=== PATIENT | male | born 1980 | race Caucasian/White ===

== ENCOUNTER 2021-05-31 08:32 | Outpatient (CLI) | payer BC, SELFPAY ==
[2021-05-31 21:09] LABS: Hemoglobin A1C 6.9 % (<5.7)
== END 2021-05-31 08:33 | disposition home or self-care (01) ==
LOC: ANHBWCLAB 08:33
PROVIDERS: PCP Family Medicine; Visit Provider Family Medicine
DX: E11.9 Type 2 diabetes mellitus without complications (principal)
CPT/HCPCS: 36415; 83036

== ENCOUNTER 2022-02-02 07:33 | Outpatient (CLI) | payer BC, SELFPAY ==
[2022-02-02 19:35] LABS: Creatinine Urine 262.1 mg/dL
[2022-02-02 19:40] LABS: MALB Creatinine Ratio 9.9 mg/g (0-30)
[2022-02-02 20:24] LABS: Hemoglobin A1C 5.7 % (<5.7)
== END 2022-02-02 07:34 | disposition home or self-care (01) ==
PROVIDERS: PCP Family Medicine; Visit Provider Family Medicine
DX: E11.9 Type 2 diabetes mellitus without complications (principal)
CPT/HCPCS: 36415; 82043; 83036

== ENCOUNTER 2022-07-12 08:12 | Outpatient (CLI) | payer OTHER, SELFPAY ==
[2022-07-12 19:37] LABS: Hemoglobin A1C 6.6 % (<5.7)
== END 2022-07-12 08:13 | disposition home or self-care (01) ==
PROVIDERS: PCP Family Medicine; Visit Provider Family Medicine
DX: E11.9 Type 2 diabetes mellitus without complications (principal)
CPT/HCPCS: 36415; 83036

== ENCOUNTER 2023-07-24 16:06 | Emergency (ER) | payer OTHER, SELFPAY ==
--- NOTE | 2023-07-24 16:12 | ED.MALEGU ---
HPI - Male Genitourinary General Chief complaint: Urogenital-Male Stated complaint: Urinary Problem Time Seen by Provider: 07/24/23 16:20 Source: patient and RN notes reviewed Mode of arrival: ambulatory Limitations: no limitations History of Present Illness HPI Narrative: 42-year-old male presents with concern for urine urgency, frequency, not fully emptying his bladder, hematuria. Reports he felt general malaise on . He denies fever, chills, sweats, nausea, vomiting. He denies history of urinary tract infections. He is a diabetic MD Complaint: dysuria Related Data Allergies Allergy/AdvReac Type Severity Reaction Status Date / Time No Known Allergies Allergy Verified 07/24/23 16:17 Review of Systems Review of Systems: CONSTITUTIONAL: Reports malaise. Denies chills, sweats, or fever. CARDIOVASCULAR: Denies chest pain, palpitations, or edema. RESPIRATORY: Denies cough or dyspnea. GASTROINTESTINAL: Reports lower abdominal pressure. Denies nausea, vomiting, diarrhea GENITOURINARY: Reports frequency, urgency, suprapubic pressure, hematuria. Denies dysuria, flank pain SKIN: Denies rash or itching. MUSCULOSKELETAL: Denies back pain or myalgia. All systems reviewed & are unremarkable except as noted in HPI and below PMFSH Past Medical History Medical History (Updated 07/24/23 @ 17:20 by Odessa Duque NP) Boil Diabetes Encounter for long-term (current) use of other medications Family History Family History Father Diabetes mellitus Grandparent Diabetes mellitus Social History Social History Smoking packs per day: 1 Smoking cigarettes per day: 20.0 Years smoked: 20 Smoking pack-years: 20.00 Smoking status: Former smoker Alcohol intake: never Substance use type: does not use Comments At time of signature, agree with nursing past medical, surgical, social and family history. There is no relevant family history pertinent to the presenting complaint Exam Narrative: GENERAL: Well-appearing, well-nourished, and in no acute distress. HEAD: Normocephalic. EYES: PERRLA, conjunctivae clear. NECK: Supple. No lymphadenopathy CHEST: Clear to auscultation. No respiratory distress. HEART: Regular rate and rhythm. ABDOMEN: Soft, nontender upon palpation, nondistended, normal active bowel sounds, no palpable or pulsatile masses, no guarding. No CVA tenderness SKIN: Warm, dry, no rash. NEURO: Alert and oriented x3. PSYCH: Normal mood and affect Course Course Emergency Course: Patient is aware of diagnosis, understands and agrees to treatment plan. Anticipatory guidance given. Patient agrees to follow-up as directed and is aware of reasons to seek care at the emergency department. Portions of this record may have been created with voice recognition software Level of Care: Express Care Visit Vital Signs Vital signs: Reviewed. MDM - Male Genitourinary MDM Narrative Medical decision making narrative: Exam findings and UA show no acute concerns or changes; patient is non-toxic appearing and is in no distress. Patient is appropriate for outpatient treatment and follow-up. Differential Diagnosis Differential diagnosis: Likely urinary tract infection, urethritis, epididymitis and prostatitis Critical Care Time Critical Care Time Critical Care Time: No Discharge Plan Discharge Clinical Impression: Symptoms of urinary tract infection Patient Disposition: Home, Self-Care Condition: Stable Instructions: Antibiotic Form, Urinary Tract Infection in Men (ED) Additional Instructions: We will send a urine culture to the lab; if the culture identifies an organism that the prescribed antibiotic will not treat, you will receive a phone call from an urgent care staff member and an appropriate antibiotic will be prescribed. -Your symptoms should begin to improve within a
[2023-07-24 16:14] VITALS: BP 152/91; PULSE 77; RESP 20; TEMP 36.7; O2SAT 100
--- NOTE | 2023-07-24 16:35 | PC.NURSE ---
PT REMAINS IN BATHROOM TRYING TO COLLECT A URINE SPECIMEN. REJI WATSON RN.
== END 2023-07-24 17:33 | disposition home or self-care (01) ==
PROVIDERS: Emergency Provider Nurse Practitioner
DX: R39.15 Urgency of urination (principal); R35.0 Frequency of micturition; R31.9 Hematuria, unspecified; Z87.891 Personal history of nicotine dependence; E11.9 Type 2 diabetes mellitus without complications
CPT/HCPCS: 81003; 87086; 87088; 99213; G0463

== ENCOUNTER 2023-08-06 10:39 | Emergency (ER) | payer OTHER, SELFPAY ==
[2023-08-06 10:44] VITALS: BP 162/89; PULSE 81; RESP 16; TEMP 35.9; O2SAT 100
--- NOTE | 2023-08-06 10:45 | ED.GENADULT ---
HPI - General Adult General Chief complaint: Urogenital-Male Stated complaint: Urinary Problem Source: patient and RN notes reviewed History of Present Illness HPI narrative: 42 yo M presents to urgent care with complaints of burning with urination and urinary urgency. Pt states these symptoms started today. Pt was seen here 2 weeks ago with same symptoms with the addition of id lower abdominal pressure. Pt was placed a 7 day course of Cipro with good relief. Pt states his symptoms resolved but are starting to return today. Pt denies any penile discharge, blisters, genital lesions, fevers, chills, abdominal pain, N/V/D, flank pain, rectal pain, or back pain. Pt does admit he and his girlfriend are splitting up and STIs are a possibility. Related Data Allergies Allergy/AdvReac Type Severity Reaction Status Date / Time No Known Allergies Allergy Verified 07/24/23 16:17 Review of Systems Review of Systems: CONSTITUTIONAL: Denies fever, chills, or sweats. EYES: Denies visual changes, redness, or discharge. ENT: Denies otalgia and sore throat CARDIOVASCULAR: Denies chest pain, palpitations, or edema. RESPIRATORY: Denies cough or dyspnea. GASTROINTESTINAL: Denies abdominal pain, nausea, vomiting, or diarrhea. SKIN: Denies rash or itching. MUSCULOSKELETAL: Denies back pain, joint pain, or myalgia. NEUROLOGIC: Denies headache, numbness, or weakness. Pertinent positives per HPI. [facility] Past Medical History Medical History (Updated 08/06/23 @ 11:11 by Yue Fu APRN) Boil Diabetes Encounter for long-term (current) use of other medications Family History Family History Father Diabetes mellitus Grandparent Diabetes mellitus Social History Social History Smoking packs per day: 1 Smoking cigarettes per day: 20.0 Years smoked: 20 Smoking pack-years: 20.00 Smoking status: Former smoker Alcohol intake: never Substance use type: does not use Comments At the time of my signature, I reviewed and agree with the nursing past medical, surgical, social, and family history. There is no relevant family history pertinent to the patient complaint. Exam Narrative: GENERAL: This is a well-nourished, well-developed patient, in no apparent distress. HEAD: normocephalic, atraumatic. EYES: Sclera clear/white. Vision is grossly intact. EARS: External ears normal, auditory canals clear and without drainage, TMs normal without perforation. Hearing grossly intact. NOSE: External nose normal with no obvious nasal discharge, nares without redness, no rhinorrhea. THROAT: Mucous membranes moist, posterior pharynx clear. NECK: Neck supple, non-tender without lymphadenopathy, masses or thyromegaly. CARDIOVASCULAR: Regular rate and rhythm without murmurs, gallops, or rubs. RESPIRATORY: Clear to auscultation. Breath sounds equal bilaterally. No wheezes, rales, or rhonchi. GASTROINTESTINAL: Abdomen soft, non-tender, nondistended. Bowel sounds are active. No hepato-splenomegaly, or palpable masses. No guarding. SKIN: warm, intact with no suspicious lesions or rash, good texture and turgor. NEURO: awake, alert, and oriented to person, place and time. There were no obvious focal neurologic abnormalities. EXTREMITIES: No clubbing, cyanosis, or edema. No joint tenderness, effusion, or edema noted. BACK: Nontender without deformity or crepitus. No flank tenderness. Course Course Level of Care: Express Care Visit Vital Signs Vital signs: Vital Signs Temperature 96.7 F L 08/06/23 10:44 Pulse Rate 81 08/06/23 10:44 Respiratory Rate 16 08/06/23 10:44 Blood Pressure 162/89 H 08/06/23 10:44 Pulse Oximetry 100 08/06/23 10:44 Oxygen Delivery Room Air 08/06/23 10:44 Temperature 96.7 F L 08/06/23 10:44 Pulse Rate 81 08/06/23 10:44 Respiratory Rate 16 08/06/23 10:44 Blood Pressure 162/89
[2023-08-06] MEDS: AZITHROMYCIN 250 MG TABLET 1000 MG PO (11:26)
[2023-08-06] MEDS: cefTRIAXone 1 GM VIAL IM (11:27)
[2023-08-06 15:40] LABS: Trichomonas Vag PCR NOT DETECTED (NOT DETECTE)
[2023-08-06 16:03] LABS: Chlamydia trachomatis NOT DETECTED (NOT DETECTE); Neisseria gonorrhoeae PCR NOT DETECTED (NOT DETECTE)
== END 2023-08-06 11:50 | disposition home or self-care (01) ==
PROVIDERS: Emergency Provider Nurse Practitioner Family
DX: N39.0 Urinary tract infection, site not specified (principal); B96.20 Unspecified Escherichia coli [E. coli] as the cause of diseases classified elsewhere; Z87.891 Personal history of nicotine dependence; E11.9 Type 2 diabetes mellitus without complications
CPT/HCPCS: 81003; 87077; 87086; 87186; 87491; 87591; 87661; 96372; 99213; A9270; G0463; J0696

== ENCOUNTER 2023-08-08 11:34 | Outpatient (CLI) | payer OTHER, SELFPAY | END 2023-08-08 11:35 | disposition home or self-care (01) | PROVIDERS: PCP Nurse Practitioner Adult Health; Visit Provider Nurse Practitioner Adult Health | DX: N39.0 Urinary tract infection, site not specified (principal) | CPT/HCPCS: 87086 ==

== ENCOUNTER 2023-09-08 09:01 | Outpatient (CLI) | payer OTHER, SELFPAY ==
[2023-09-08 18:53] LABS: Alanine Aminotransferase 35 U/L (6-50); Albumin Level 4.4 g/dL (3.5-5.1); Alkaline Phosphatase 68 U/L (38-126); Anion Gap 7 mmol/L (8-16); Aspartate Amino Transferase 62 U/L (17-59); Bilirubin,Total 0.5 mg/dL (0.2-1.3); Blood Urea Nitrogen 19 mg/dL (9-20); Calcium 9.5 mg/dL (8.4-10.2); Carbon Dioxide 32 mmol/L (22-30); Chloride 100 mmol/L (98-107); Cholesterol 165 mg/dL (0-200); Estimated Glomerular Filt Rate > 60; Glucose 122 mg/dL (65-110); HDL Direct 40 mg/dL; Potassium 4.3 mmol/L (3.4-5.0); Sodium 139 mmol/L (137-145); Triglycerides 102 mg/dL (<150)
[2023-09-08 19:04] LABS: LDL Cholesterol Direct 97 mg/dL
[2023-09-08 19:06] LABS: Hemoglobin A1C 6.4 % (<5.7)
[2023-09-08 19:15] LABS: Creatinine Urine 107.1 mg/dL
[2023-09-08 19:25] LABS: MALB Creatinine Ratio < 5.6 mg/g (0-30); Microalbumin Urine Random < 6.0 mg/L (0-16.7)
== END 2023-09-08 09:02 | disposition home or self-care (01) ==
LOC: ANHBWCLAB 09:02
PROVIDERS: PCP Nurse Practitioner Adult Health; Visit Provider Nurse Practitioner Adult Health
DX: E11.9 Type 2 diabetes mellitus without complications (principal)
CPT/HCPCS: 36415; 80053; 80061; 82043; 83036

== ENCOUNTER 2024-03-18 07:32 | Outpatient (CLI) | payer OTHER, SELFPAY ==
[2024-03-18 19:03] LABS: Hematocrit 48.4 % (42.0-52.0); Hemoglobin 15.3 g/dL (14.0-18.0); Mean Corpuscular HGB Conc 31.6 g/dl (32-36); Mean Corpuscular Hemoglobin 30.5 pg (26-34); Mean Corpuscular Volume 96.6 fl (80-100); Mean Platelet Volume 10.5 fl (7.4-10.4); Platelet Count Result 235 k/mm3 (150-375); Red Blood Count 5.01 M/mm3 (4.6-6.20); Red Cell Distribution Width 13.3 % (11.5-14.5); White Blood Count 7.2 K/mm3 (4.5-10.0)
[2024-03-18 19:25] LABS: Alanine Aminotransferase 22 U/L (6-50); Albumin Level 4.8 g/dL (3.5-5.1); Alkaline Phosphatase 55 U/L (38-126); Anion Gap 7 mmol/L (4-12); Aspartate Amino Transferase 75 U/L (17-59); Bilirubin,Total 0.6 mg/dL (0.2-1.3); Blood Urea Nitrogen 18 mg/dL (9-20); Calcium 9.3 mg/dL (8.4-10.2); Carbon Dioxide 31 mmol/L (22-30); Chloride 101 mmol/L (98-107); Cholesterol 174 mg/dL (0-200); Estimated Glomerular Filt Rate > 60; Glucose 125 mg/dL (65-110); HDL Direct 44 mg/dL; Potassium 4.2 mmol/L (3.4-5.0); Sodium 139 mmol/L (137-145); Triglycerides 95 mg/dL (<150)
[2024-03-18 19:35] LABS: LDL Cholesterol Direct 113 mg/dL
[2024-03-18 20:30] LABS: Creatinine Urine 203.7 mg/dL
[2024-03-18 20:39] LABS: MALB Creatinine Ratio 3.1 mg/g (0-30); Microalbumin Urine Random 6.3 mg/L (0-16.7)
[2024-03-20 11:38] LABS: Hemoglobin A1C 6.4 % (<5.7)
== END 2024-03-18 07:33 | disposition home or self-care (01) ==
LOC: ANHBWCLAB 07:33
PROVIDERS: PCP Nurse Practitioner Adult Health; Visit Provider Nurse Practitioner Adult Health
DX: E11.9 Type 2 diabetes mellitus without complications (principal); Z13.9 Encounter for screening, unspecified
CPT/HCPCS: 36415; 80053; 80061; 82043; 82565; 83036; 85027

== ENCOUNTER 2024-09-02 08:45 | Outpatient (CLI) | payer OTHER, SELFPAY ==
[2024-09-02 20:15] LABS: Alanine Aminotransferase 31 U/L (6-50); Albumin Level 4.2 g/dL (3.5-5.1); Alkaline Phosphatase 65 U/L (38-126); Anion Gap 4 mmol/L (4-12); Aspartate Amino Transferase 56 U/L (17-59); Bilirubin,Total 0.4 mg/dL (0.2-1.3); Blood Urea Nitrogen 13 mg/dL (9-20); Calcium 9.1 mg/dL (8.4-10.2); Carbon Dioxide 27 mmol/L (22-30); Chloride 107 mmol/L (98-107); Cholesterol 138 mg/dL (0-200); Estimated Glomerular Filt Rate > 60; Glucose 109 mg/dL (65-110); HDL Direct 27 mg/dL; Potassium 4.1 mmol/L (3.4-5.0); Sodium 138 mmol/L (137-145); Triglycerides 130 mg/dL (<150)
[2024-09-02 20:26] LABS: Creatinine Urine 102.3 mg/dL; LDL Cholesterol Direct 77 mg/dL
[2024-09-02 20:46] LABS: MALB Creatinine Ratio < 5.9 mg/g (0-30); Microalbumin Urine Random < 6.0 mg/L (0-16.7)
[2024-09-02 21:38] LABS: Hemoglobin A1C 6.1 % (<5.7)
--- OUTSIDE RECORDS SUMMARY | 2024-09-09 21:22 | XMS_ITS | Clinical Summary ---
Author Organization [facility] Address [address] [place] [address] Phone Care Team Providers Care Health And Wellness Instructor Name Role Phone Kerwin Vogt Primary Care Provider [phone] Allergies No known active allergies Medications HYDROcodone-sierra taminophen (NORCO) 10-325 MG Tablet Take 1 Tab by mouth every 4 hours as needed for Moderate or more severe pain. 9 Tab 9 Active Additional Information Patient not taking.Reported on 08/13/2019 metFORMIN (GLUCOPHAGE) 1000 MG Tablet Take 1 Tab by mouth 2 times daily (with meals). 60 Tab 9 Active ondansetron (ZOFRAN-ODT) 4 MG TABLET DISPERSIBLE Take 1 Tab by mouth every 12 hours as needed for Nausea - 1st line. 10 Tab 9 Active Additional Information Patient not taking.Reported on 08/13/2019 LANTUS 100 UNIT/ML Solution 30 Units by Subcutaneous route nightly. 4 Vial 9 Active INSULIN SYRINGE .5CC/29G 29G X 1/2 0.5 ML Misc As instructed 30 Each 9 Active Blood Glucose Monitoring Suppl Device Okay to substitute for insurance purposes. Diagnosis: Diabetes type 2. Blood testing frequency: once a day 1 Each 9 Active Lancets Misc Okay to substitute for insurance purposes. Use as directed 50 Lancet 9 Active Glucose Blood Strip Okay to substitute for insurance purposes. Diagnosis: Diabetes type 2. Blood testing frequency: once a day 50 Strip 9 Active Active Problems Problem Noted Date Diagnosed Date Moderate obesity 07/30/2019 Type 2 diabetes mellitus wit h skin complication, without long-term current use of insulin 07/26/2019 Abscess of buttock 07/26/2019 Family History Medical History Relation Name Comments No Known Problems Brother 1 No Known Problems Brother 2 No Known Problems Daughter Chronic Obstructive Pulmonary Disease Father Other-comment Father orange agent Relation Name Status Comments Brother 1 Alive Brother 2 Alive Daughter Alive Father Mother Alive Social History Tobacco Use Types Packs/Day Years Used Date Smoking Tobacco: Former Cigarettes 1 21.5 1 09/25/1996 - 01/23/2019 Smokeless Tobacco: Never Alcohol Use Standard Drinks/Week Comments Not Currently 0 (1 standard drink = 0.6 oz pur e alcohol) occasionally Sexually Active Control Partners Comments Yes Female Sex and Gender Information Value Date Recorded Sex Assigned at Not on file Legal Sex Male 7:41 PM CDT Gender Identity Not on file Sexual Orientation Not on file Last Filed Vital Signs Vital Sign Reading Time Taken Comments Blood Pressure 132/88 08/27/2019 8:24 AM CENTRAL COMMUNICATIONS SPECIALIST Pulse 77 08/27/2019 8:24 AM CENTRAL COMMUNICATIONS SPECIALIST Temperature 36.1 ??C (97 ??F) 08/27/2019 8:24 AM CENTRAL COMMUNICATIONS SPECIALIST Respiratory Rate 18 07/30/2019 7:00 AM CENTRAL COMMUNICATIONS SPECIALIST Oxygen Saturation 98% 08/27/2019 8:24 AM CENTRAL COMMUNICATIONS SPECIALIST Inhaled Oxygen Concentration - - Weight 148.8 kg (328 lb) 08/27/2019 8:24 AM CENTRAL COMMUNICATIONS SPECIALIST Height 185.4 cm (6' 1 ) 08/27/2019 8:24 AM CENTRAL COMMUNICATIONS SPECIALIST Body Mass Index 43.27 08/27/2019 8:24 AM CENTRAL COMMUNICATIONS SPECIALIST Plan of Treatment Health Maintenance Due Date Last Done Comments Diabetes: Eye Exam 1981 Diabetes: Foot Exam 1981 Hepatitis C Virus (HCV) Screening 1981 TdaP Immunization 1981 Hepatitis B Immunization (1 of 3 - 19+ 3-dose series) 2000 Pneumococcal Immunization Co mbined (1 of 2 - PCV) 2000 Diabetes: Hemoglobin A1c 01/24/2020 07/26/2019 Diabetes: Nephropathy Screening 07/26/2020 9 Influenza Immunization (#1) 2024 SARS-COV-2 Immunization ( season) 2024 Respiratory Syncytial Virus (RSV) Immunization (Adult) (1 - 1-dose 75+ series) 2056 Meningococcal Immunization (ACWY) Aged Out No longer eligible based on patient's age to complete this topic Rotavirus Immunization Aged Out No lo nger eligible based on patient's age to complete this topic Procedures Procedure Name Priority Date/Time Associated Diagnosis Comments CMP (COMPREHENSIVE METABOLIC PANEL) STAT 07/26/2019 9:20 AM CENTRAL COMMUNICATIONS SPECIALIST HEMOGLOBIN A1C W/ ESTIMATED GLUCOSE Routine 07/26/2019 9:20 AM CENTRAL COMMUNICATIONS SPECIALIST from Last 3 Months or Most Recently Relevant to Health Maintenance Results * (ABNORMAL) Hemoglobin A1C (if indicated) (07/26/2019 9:20 AM CENTRAL COMMUNICATIONS SPECIALIST) HGB-A1C 12.9(H) 4.0 - 6.0 % 07/26/2019 1:33 PM CENTRAL COMMUNICATIONS SPECIALIST [facility] Est Average Glucose 323.5 mg/dL 07/26/2019 1:33 PM CENTRAL COMMUNICATIONS SPECIALIST [facility] Blood specimen (specimen) Venous Catheter (IV) / Unknown 07/26/2019 9:20 AM CENTRAL COMMUNICATIONS SPECIALIST 07/26/2019 9:33 AM CENTRAL COMMUNICATIONS SPECIALIST Narrative [facility] - 07/26/2019 1:33 PM CENTRAL COMMUNICATIONS SPECIALIST HEMOGLOBIN A1C: DIABETIC PATIENTS: WELL-CONTROLLED: ?? 6.2 - 7.0 INTERMEDIATE WELL-CONTROLLED: ??7.0 - 9.0 POORLY-CONTROLLED: ??>9.0 us Dominik Oswald MD CHEMISTRY ORDERABLES Fi nal Result [facility] [address] [place] [address] * (ABNORMAL) CMP (07/26/2019 9:20 AM CENTRAL COMMUNICATIONS SPECIALIST) SODIUM 130(L) 136 - 144 mmol/L 07/26/2019 10:10 AM CENTRAL COMMUNICATIONS SPECIALIST [facility] POTASSIUM 3.3(L) 3.5 - 5.1 mmol/L 07/26/2019 10:10 AM [facility] CHLORIDE 90(L) 100 - 110 mmol/L 07/26/2019 10:10 AM [facility] CO2, VENOUS 29 22 - 32 mmol/L 07/26/2019 10:10 AM [facility] ANION GAP 14.3 8.0 - 20.0 mmol/L 07/26/2019 10:10 AM [facility] GLUCOSE 286(H) 70 - 99 mg/dL 07/26/2019 10:10 AM [facility] BUN 15 6 - 20 mg/dL 07/26/2019 10:10 AM [facility] CREATININE, BLOOD 0.66(L) 0.80 - 1.30 mg/dL 07/26/2019 10:10 AM [facility] BUN/CREATININE RATIO 23(H) 12 - 20 ratio 07/26/2019 10:10 AM [facility] TOTAL PROTEIN 7.2 6.0 - 8.3 g/dL 07/26/2019 10:10 AM [facility] ALBUMIN 3.6 3.5 - 5.2 g/dL 07/26/2019 10:10 AM [facility] Comment: The colormetric methods used for the determination of Albumin may lead to falsely elevated test results in patients suffering from renal failure or insufficiency due to interference with other proteins. A/G RATIO 1.0 1.0 - 2.0 07/26/2019 10:10 AM [facility] CALCIUM 9.1 8.9 - 10.3 mg/dL 07/26/2019 10:10 AM [facility] T BILI 0.4 <=1.2 mg/dL 07/26/2019 10:10 AM [facility] SGOT (AST) 24 <=40 U/L 07/26/2019 10:10 AM [facility] SGPT (ALT) 47(H) <=41 U/L 07/26/2019 10:10 AM [facility] ALKALINE PHOSPHATASE 86 40 - 130 U/L 07/26/2019 10:10 AM CENTRAL COMMUNICATIONS SPECIALIST [facility] GFR, EST. NONAFRICAN >60 >=60 07/26/2019 10:10 AM CENTRAL COMMUNICATIONS SPECIALIST [facility] GFR, EST. >60 >=60 019 10:10 AM [facility] Comment: Creatinine Clearance is the preferred criteria for selecting drug dose adjustments in renally impaired patients. ??The GFR is provided as additional pertinent clinical information. GFR is reported in mL/min/1.73 sq m. Blood specimen (specimen) Venous Catheter (IV) / Unknown 07/26/2019 9:20 AM CENTRAL COMMUNICATIONS SPECIALIST 07/26/2019 9:33 AM CENTRAL COMMUNICATIONS SPECIALIST us Francisco Perez MD CHEMISTRY ORDERABLES Final Result [facility] [address] [place] [address] from Last 3 Months or Most Recently Relevant to Health Maintenance Advance Directives * Full Code (Latest Code Status on File) Date Activated Date Inactivated Comments 07/26/2019 12:22 PM 07/30/2019 3:37 PM CPR-Full Treatment: FULL ARREST: Attempt Resuscitation/CPR wit intubation and mechanical ventilation. PRE-ARREST: Use entire range of life support measures to stabilize the patient. Care Teams Health And Wellness Instructor Relationship Specialty Start Date End Date Kerwin Vogt DO [address] [place] [address] PCP - General Family Medicine 07/30/19
--- OUTSIDE RECORDS SUMMARY | 2024-09-09 21:22 | XMS_ITS | Patient Health Summary ---
Author Organization [facility] Address [address] [place] [address] Care Team Providers Care Plate Washer Name Role Phone Unavailable Primary Care Provider Unavailabl e Note from [facility],non-owned Affiliates and Associated Physician Practices is amultiple site organization consisting of ambulatory clinics and hospital sitesin [place], [place], [place] and [place]. This disclosure is being madepursuant to the Care Everywhere program and may not contain all information available regarding this patient. Last updated 18.[facility] Allergies No known active allergies Medications * Be aware that medications may not be up to date on this document. Alwaysverify current medications with the patient. * methylPREDNISolone (MEDROL DOSEPAK) 4 MG tablet(Started 11/17/2016) Take by mouth as directed Social History Tobacco Use Types Packs/Day Years Used Date Smoking Tobacco: Never Sex and Gender Information Value Date Recorded Sex Assigned at Not on file Gender Identity Not on file Sexual Orientation Not on file Last Filed Vital Signs Vital Sign Reading Time Taken Comments Blood Pressure 150/90 11/17/2016 12:16 PM RECORDS ASSOCIATE Pulse 100 11/17/2016 12:16 PM RECORDS ASSOCIATE Temperature 38.6 ??C (101.4 ??F) 11/17/2016 12:16 PM RECORDS ASSOCIATE Respiratory Rate 20 11/17/2016 12:16 PM RECORDS ASSOCIATE Oxygen Saturation - - Inhaled Oxygen Concentration - - Weight 172.4 kg (380 lb) 11/17/2016 12:16 PM RECORDS ASSOCIATE Height 182.9 cm (6') 11/17/2016 12:16 PM RECORDS ASSOCIATE Body Mass Index 51.54 11/17/2016 12:16 PM RECORDS ASSOCIATE Procedures * INFLUENZA A+B - POINT OF CARE (AMB)(Performed 11/17/2016) Performed for Acute URI Results * INFLUENZA A+B - POINT OF CARE (AMB) (11/17/2016) Influenza A Antigen Rapid Negative Negative Influenza B Antigen Rapid Negative Negative Influenza Internal Control yes NEGATIVE - POSITIVE Influenza Lot Number [id number] Influenza Expiration Date 50,119 Other NASOPHARYNGEAL SWAB / Unknown 11/17/2016 Susy Jin FORMS ANALYSIS MANAGER-SECURITY CONTROL ROOM OFFICER LAB - POINT OF CARE ORDERABLES
--- OUTSIDE RECORDS SUMMARY | 2024-09-09 21:22 | XMS_ITS | Encounter Summary ---
Author Organization [facility] Address [address] [place] [address] Care Team Providers Care Supervisor Product Inspection Name Role Phone Unavailable Primary Care Provider Unavailabl e Reason for Visit * Reason Comments Congestion sudden onset last PM . Had mild cold last week, resolved. Fever Cough Encounter Details Date Type Department Care Team (Late st Contact Info) Description 11/17/2016 12:00 PM DIGITAL MEDIA DESIGNER Office Visit [facility] AT [address] [id number] Provider, Niesha Kruse [facility] URI (Primary Dx) Social History Tobacco Use Types Packs/Day Years Used Date Smoking Tobacco: Never Sex and Gender Information Value Date Recorded Sex Assigned at Not on file Gender Identity Not on file Sexual Orientation Not on file documented as of this encounter Last Filed Vital Signs Vital Sign Reading Time Taken Comments Blood Pressure 150/90 11/17/2016 12:16 PM DIGITAL MEDIA DESIGNER Pulse 100 11/17/2016 12:16 PM DIGITAL MEDIA DESIGNER Temperature 38.6 ??C (101.4 ??F) 11/17/2016 12:16 PM DIGITAL MEDIA DESIGNER Respiratory Rate 20 11/17/2016 12:16 PM DIGITAL MEDIA DESIGNER Oxygen Saturation - - Inhaled Oxygen Concentration - - Weight 172.4 kg (380 lb) 11/17/2016 12:16 PM DIGITAL MEDIA DESIGNER Height 182.9 cm (6') 11/17/2016 12:16 PM DIGITAL MEDIA DESIGNER Body Mass Index 51.54 11/17/2016 12:16 PM DIGITAL MEDIA DESIGNER documented in this encounter Patient Instructions * Patient Instructions* Susy Jin APRN-CNP - 11/17/2016 12:19 PM DIGITAL MEDIA DESIGNER Drink plenty of fluids Get plenty of rest Cool mist humidifier Elevate head of bed Tylenol or Ibuprofen per package direction for discomfort\fever (if not allergic) Delsym for cough if needed. TAL MEDIA DESIGNER documented in this encounter Progress Notes * Susy Jin APRN-CNP - 11/17/2016 12:13 PM CST [facility] Chief Complaint Patient presents with ??? Congestion sudden onset last PM. Had mild cold last week, resolved. ??? Fever ??? Cough SUBJECTIVE: HPI No past medical history on file. No current outpatient prescriptions on file prior to visit. No current facility-administered medications on file prior to visit. Past Surgical History Procedure Laterality Date ??? Negative surgical history History Social History ??? Marital status: Single Spouse name: N/A ??? Number of children: N/A ??? Years of education: N/A Occupational History ??? Not on file. Social History Main Topics ??? Smoking status: Never Smoker ??? Smokeless tobacco: Not on file ??? Alcohol use: Not on file ??? Drug use: Not on file ??? Sexual activity: Not on file Other Topics Concern ??? Not on file Social History Narrative ??? No narrative on file No family history on file. Current Outpatient Prescriptions Medication Sig Dispense Refill ??? methylPREDNISolone (MEDROL DOSEPAK) 4 MG tablet Take by mouth as directed 1 Each 0 No current facility-administered medications for this visit. No Known Allergies REVIEW OF SYSTEMS: Review of Systems Constitutional: Positive for chills, fever and malaise/fatigue. HENT: Positive for congestion. Respiratory: Positive for cough. Cardiovascular: Negative. Gastrointestinal: Positive for nausea. Neurological: Positive for headaches. OBJECTIVE: General appearance: alert, well appearing, and in no distress. BP 150/90 Pulse 100 Temp 101.4 ??F Resp 20 Ht 1.829 m (6') Wt 172.4 kg (380 lb) BMI 51.54 kg/m2 Physical Exam Constitutional: He is oriented to person, place, and time. Appears ill HENT: Head: Normocephalic. Nose: Nose normal. TM opague, no erythema. PND noted. No sinus tenderness. Neck: Normal range of motion. Neck supple. Cardiovascular: Normal rate and regular rhythm. Pulmonary/Chest: Effort normal and breath sounds normal. Sats 97 RA Neurological: He is alert and oriented to person, place, and time. Skin: Skin is warm and dry. ASSESSMENT: Office Visit on 11/17/16 INFLUENZA A+B - POINT OF CARE (AMB) Result Value Ref Range Influenza A Ag Negative Negative Influenza B Ag Negative Negative Influenza Control yes NEGATIVE - POSITIVE Influenza Lot# [id number] Influenza Expir Date Encounter Diagnosis Name Primary? Acute URI Yes PLAN: Orders Placed This Encounter ??? INFLUENZA A+B - POINT OF CARE (AMB) ??? methylPREDNISolone (MEDROL DOSEPAK) 4 MG tablet Sig: Take by mouth as directed Dispense: 1 Each Refill: 0 INFLUENZA NEGATIVE Drink plenty of fluids Get plenty of rest Cool mist humidifier Elevate head of bed Tylenol or Ibuprofen per package direction for discomfort\fever (if not allergic) Delsym for cough if needed. TAL MEDIA DESIGNER documented in this encounter Plan of Treatment Not on file documented as of this encounter Procedures Procedure Name Priority Date/Time Associated Diagnosis Comments INFLUENZA A+B - POINT OF CARE (AMB) Routine 11/17/2016 Acute URI documented in this encounter Results * INFLUENZA A+B - POINT OF CARE (AMB) (11/17/2016) Influenza A Antigen Rapid Negative Negative Influenza B Antigen Rapid Negative Negative Influenza Internal Control yes NEGATIVE - POSITIVE Influenza Lot Number [id number] Influenza Expiration Date 50,119 Other NASOPHARYNGEAL SWAB / Unknown 11/17/2016 [facility] - POINT OF CARE ORDERABLES documented in this encounter Visit Diagnoses Diagnosis Acute URI- Primary Acute upper respiratory infections of unspecified site documented in this encounter
--- OUTSIDE RECORDS SUMMARY | 2024-09-09 21:22 | XMS_ITS | Clinical Summary ---
Author Organization [facility] [employer] Address [address] [place] [address] Care Team Providers Care Center Hole Reamer Name Role Phone Unavailable Primary Care Provider Unavailabl e Source Comments [facility], formerly [facility],non-owned Affiliates and Associated Physician Practices is amultiple site organization consisting of ambulatory clinics and hospital sitesin [place], [place], [place] and [place]. This disclosure is being madepursuant to the Care Everywhere program and may not contain all information available regarding this patient. Last updated 18.[facility] [employer] Allergies No known active allergies Medications * Be aware that medications may not be up to date on this document. Alwaysverify current medications with the patient. Medication Sig Dispensed Refills Start Date End Date Status methylPREDNISolone (MEDROL DOSEPAK) 4 MG tablet Take by mouth as directed 1 Each 11/17/2016 Active Social History Tobacco Use Types Packs/Day Years Used Date Smoking Tobacco: Never Sex and Gender Information Value Date Recorded Sex Assigned at Not on file Gender Identity Not on file Sexual Orientation Not on file Last Filed Vital Signs Vital Sign Reading Time Taken Comments Blood Pressure 150/90 11/17/2016 12:16 PM FLOAT BUILDER Pulse 100 11/17/2016 12:16 PM FLOAT BUILDER Temperature 38.6 ??C (101.4 ??F) 11/17/2016 12:16 PM FLOAT BUILDER Respiratory Rate 20 11/17/2016 12:16 PM FLOAT BUILDER Oxygen Saturation - - Inhaled Oxygen Concentration - - Weight 172.4 kg (380 lb) 11/17/2016 12:16 PM FLOAT BUILDER Height 182.9 cm (6') 11/17/2016 12:16 PM FLOAT BUILDER Body Mass Index 51.54 11/17/2016 12:16 PM FLOAT BUILDER Plan of Treatment Health Maintenance Due Date Last Done Comments LIPID TESTING 1981 HIV SCREENING 1996 HEPATITIS C SCREENING 12/01/1999 DTAP/TDAP/TD VACCINES (1 - Tdap) 2000 HEPATITIS B VACCINE (1 of 3 - 19+ 3-dose series) 2000 DEPRESSION SCREENING 09/11/2023 COVID-19 VACCINE (1 - 2023-2 5 season) 2024 INFLUENZA VACCINE (#1) 2024 ZOSTER VACCINE (1 of 2) 12/06/2031 HIB VACCINE Aged Out No longer eligi ble based on patient's age to complete this topic HPV VACCINE Aged Out No longer eligi ble based on patient's age to complete this topic MENINGOCOCCAL VACCINE Aged Out [place] eligible based on patient's age to complete this topic PNEUMOCOCCAL VACCINE Aged Out No long er eligible based on patient's age to complete this topic
--- OUTSIDE RECORDS SUMMARY | 2024-09-09 21:22 | XMS_ITS | Referral Summary ---
Author Organization [facility] Address [address] [place] [address] Care Team Providers Care Skilled Nursing Facility Counselor Name Role Phone Unavailable Primary Care Provider Unavailabl e Source Comments [facility],non-owned Affiliates and Associated Physician Practices is amultiple site organization consisting of ambulatory clinics and hospital sitesin [place], [place], [place] and [place]. This disclosure is being madepursuant to the Care Everywhere program and may not contain all information available regarding this patient. Last updated 18.[facility] [employer] Allergies No known active allergies Medications * [...] Comments Blood Pressure 150/90 11/17/2016 12:16 PM VICE PRESIDENT OF ENGINEERING Pulse 100 11/17/2016 12:16 PM VICE PRESIDENT OF ENGINEERING Temperature 38.6 ??C (101.4 ??F) 11/17/2016 12:16 PM VICE PRESIDENT OF ENGINEERING Respiratory Rate 20 11/17/2016 12:16 PM VICE PRESIDENT OF ENGINEERING Oxygen Saturation - - Inhaled Oxygen Concentration - - Weight 172.4 kg (380 lb) 11/17/2016 12:16 PM VICE PRESIDENT OF ENGINEERING Height 182.9 cm (6') 11/17/2016 12:16 PM VICE PRESIDENT OF ENGINEERING Body Mass Index 51.54 11/17/2016 12:16 PM VICE PRESIDENT OF ENGINEERING Plan of Treatment Not on file
--- OUTSIDE RECORDS SUMMARY | 2024-09-09 21:22 | XMS_ITS | Encounter Summary ---
Author Organization [facility] Address [address] [place] [address] Care Team Providers Care Triage Registered Nurse Name Role Phone Unavailable Primary Care Provider Unavailabl e Reason for Visit * Reason Onset Date Comments Follow-up 11/19/2016 spoke with pham blanc no concerns Encounter Details Date Type Department Care Team (Late st Contact Info) Description 11/19/2016 Telephone [facility] [address] [address] Ileana Wiley, SUPERVISOR [employer]ENEER[employer]INS[employer] CHANNEL ACCOUNT MANAGER [address] [address] Follow-up (spoke with patient no concerns) Social History Tobacco Use Types Packs/Day Years Used Date Smoking Tobacco: Never Sex and Gender Information Value Date Recorded Sex Assigned at Not on file Gender Identity Not on file Sexual Orientation Not on file documented as of this encounter Plan of Treatment Not on file documented as of this encounter Visit Diagnoses Not on filedocumented in this encounter
== END 2024-09-02 08:46 | disposition home or self-care (01) ==
LOC: ANHBWCLAB 08:46
PROVIDERS: PCP Nurse Practitioner Adult Health; Visit Provider Nurse Practitioner Adult Health
DX: E11.9 Type 2 diabetes mellitus without complications (principal)
CPT/HCPCS: 36415; 80053; 80061; 82043; 82565; 83036

== ENCOUNTER 2025-03-11 06:39 | Outpatient (CLI) | payer OTHER, SELFPAY ==
--- OUTSIDE RECORDS SUMMARY | 2025-03-11 06:47 | XMS_ITS | Clinical Summary ---
Author Organization [facility] Address [address] [place] [address] Phone Care Team Providers Care Archeology Professor Name Role Phone Kerwin Vogt Primary Care Provider +1- [phone] Allergies No known active allergies Medications HYDROcodone-sierra [...] Comments Blood Pressure 132/88 08/27/2019 8:24 AM MANAGER AGRICULTURAL Pulse 77 08/27/2019 8:24 AM MANAGER AGRICULTURAL Temperature 36.1 C (97 F) 08/27/2019 8:24 AM MANAGER AGRICULTURAL Respiratory Rate 18 07/30/2019 7:00 AM MANAGER AGRICULTURAL Oxygen Saturation 98% 08/27/2019 8:24 AM MANAGER AGRICULTURAL Inhaled Oxygen Concentration - - Weight 148.8 kg (328 lb) 08/27/2019 8:24 AM MANAGER AGRICULTURAL Height 185.4 cm (6' 1) 08/27/2019 8:24 AM MANAGER AGRICULTURAL Body Mass Index 43.27 08/27/2019 8:24 AM MANAGER AGRICULTURAL Plan of Treatment Health Maintenance Due Date Last Done Comments Diabetes: Eye Exam 1981 Diabetes: Foot Exam 1981 Hepatitis C Virus (HCV) Screening 1981 TdaP Immunization 1981 Human Papillomavirus (HPV) Immunization (1 - Male 3-dose series) 1996 Hepatitis B Immunization (1 of 3 - 19+ 3-dose series) 2000 Pneumococcal Immunization Co mbined (1 of 2 - PCV) 2000 Diabetes: Hemoglobin A1c 01/24/2020 07/26/2019 Diabetes: Nephropathy Screening 07/26/2020 9 SARS-COV-2 Immunization ( - season) 2024 Influenza Immunization (Seas on Ended) 2025 Respiratory Syncytial Virus (RSV) Immunization (Adult) (1 - 1-dose 75+ series) 2056 Meningococcal Immunization (ACWY) Aged Out No longer eligible based on patient's age to complete this topic Rotavirus Immunization Aged Out No lo nger eligible based on patient's age to complete this topic Procedures Procedure Name Priority Date/Time Associated Diagnosis Comments CMP (COMPREHENSIVE METABOLIC PANEL) STAT 07/26/2019 9:20 AM MANAGER AGRICULTURAL HEMOGLOBIN A1C W/ ESTIMATED GLUCOSE Routine 07/26/2019 9:20 AM MANAGER AGRICULTURAL from Last 3 Months or Most Recently Relevant to Health Maintenance Results * (ABNORMAL) Hemoglobin A1C (if indicated) (07/26/2019 9:20 AM MANAGER AGRICULTURAL) HGB-A1C 12.9(H) 4.0 - 6.0 % 07/26/2019 1:33 PM MANAGER AGRICULTURAL [facility] Est Average Glucose 323.5 mg/dL 07/26/2019 1:33 PM MANAGER AGRICULTURAL [facility] Blood specimen (specimen) Venous Catheter (IV) / Unknown 07/26/2019 9:20 AM MANAGER AGRICULTURAL 07/26/2019 9:33 AM MANAGER AGRICULTURAL Narrative [facility] - 07/26/2019 1:33 PM MANAGER AGRICULTURAL HEMOGLOBIN A1C: DIABETIC PATIENTS: WELL-CONTROLLED: 6.2 - 7.0 INTERMEDIATE WELL-CONTROLLED: 7.0 - 9.0 POORLY-CONTROLLED: >9.0 us Dominik Oswald MD CHEMISTRY ORDERABLES Fi nal Result [facility] [address] [place] [address] * (ABNORMAL) CMP (07/26/2019 9:20 AM MANAGER AGRICULTURAL) SODIUM 130(L) 136 - 144 mmol/L 07/26/2019 10:10 AM MANAGER AGRICULTURAL [facility] POTASSIUM 3.3(L) 3.5 - 5.1 mmol/L 07/26/2019 10:10 AM [facility] CHLORIDE 90(L) 100 - 110 mmol/L 07/26/2019 10:10 AM [facility] CO2, VENOUS 29 22 - 32 mmol/L 07/26/2019 10:10 AM [facility] ANION GAP 14.3 8.0 - 20.0 mmol/L 07/26/2019 10:10 AM [facility] GLUCOSE 286(H) 70 - 99 mg/dL 07/26/2019 10:10 AM [facility] BUN 15 6 - 20 mg/dL 07/26/2019 10:10 AM [facility] CREATININE, BLOOD 0.66(L) 0.80 - 1.30 mg/dL 07/26/2019 10:10 AM [facility] BUN/CREATININE RATIO 23(H) 12 - 20 ratio 07/26/2019 10:10 AM [facility] TOTAL PROTEIN 7.2 6.0 - 8.3 g/dL 07/26/2019 10:10 AM [facility] ALBUMIN 3.6 3.5 - 5.2 g/dL 07/26/2019 10:10 AM [facility] Comment: The colormetric methods used for the determination of Albumin may lead to falsely elevated test results in patients suffering from renal failure or insufficiency due to interference with other proteins. A/G RATIO 1.0 1.0 - 2.0 07/26/2019 10:10 AM [facility] CALCIUM 9.1 8.9 - 10.3 mg/dL 07/26/2019 10:10 AM [facility] T BILI 0.4 <=1.2 mg/dL 07/26/2019 10:10 AM [facility] SGOT (AST) 24 <=40 U/L 07/26/2019 10:10 AM [facility] SGPT (ALT) 47(H) <=41 U/L 07/26/2019 10:10 AM [facility] ALKALINE PHOSPHATASE 86 40 - 130 U/L 07/26/2019 10:10 AM MANAGER AGRICULTURAL [facility] GFR, EST. NONAFRICAN >60 >=60 07/26/2019 10:10 AM MANAGER AGRICULTURAL [facility] GFR, EST. >60 >=60 019 10:10 AM MANAGER AGRICULTURAL [facility] Comment: Creatinine Clearance is the preferred criteria for selecting drug dose adjustments in renally impaired patients. The GFR is provided as additional pertinent clinical information. GFR is reported in mL/min/1.73 sq m. Blood specimen (specimen) Venous Catheter (IV) / Unknown 07/26/2019 9:20 AM MANAGER AGRICULTURAL 07/26/2019 9:33 AM MANAGER AGRICULTURAL us Francisco Perez MD CHEMISTRY ORDERABLES Final Result [facility] [address] [place] [address] from Last 3 Months or Most Recently Relevant to Health Maintenance Advance Directives * Full Code (Latest Code Status on File) Date Activated Date Inactivated Comments 07/26/2019 12:22 PM 07/30/2019 3:37 PM CPR-Full Treatment: FULL ARREST: Attempt Resuscitation/CPR wit intubation and mechanical ventilation. PRE-ARREST: Use entire range of life support measures to stabilize the patient. Care Teams Archeology Professor Relationship Specialty Start Date End Date Kerwin Vogt DO [address] [place] [address] PCP - General Family Medicine 07/30/19
[2025-03-11 19:32] LABS: Alanine Aminotransferase 25 U/L (6-50); Albumin Level 4.5 g/dL (3.5-5.1); Alkaline Phosphatase 49 U/L (38-126); Anion Gap 7 mmol/L (4-12); Aspartate Amino Transferase 60 U/L (17-59); Bilirubin,Total 0.5 mg/dL (0.2-1.3); Blood Urea Nitrogen 17 mg/dL (9-20); Calcium 9.5 mg/dL (8.4-10.2); Carbon Dioxide 28 mmol/L (22-30); Chloride 102 mmol/L (98-107); Cholesterol 174 mg/dL (0-200); Estimated Glomerular Filt Rate > 60; Glucose 114 mg/dL (65-110); HDL Direct 38 mg/dL; Potassium 4.4 mmol/L (3.4-5.0); Sodium 137 mmol/L (137-145); Total Protein 8.0 g/dL (6.3-8.2); Triglycerides 142 mg/dL (<150)
[2025-03-11 19:37] LABS: MALB Creatinine Ratio 9.0 mg/g (0-30)
[2025-03-11 20:04] LABS: Hemoglobin A1C. 6.1 % (<5.7)
== END 2025-03-11 06:40 | disposition home or self-care (01) ==
LOC: ANHBWCLAB 06:45
PROVIDERS: PCP Nurse Practitioner Adult Health; Visit Provider Nurse Practitioner Adult Health
DX: E11.9 Type 2 diabetes mellitus without complications (principal)
CPT/HCPCS: 36415; 80053; 80061; 82043; 83036

== ENCOUNTER 2025-09-02 08:05 | Outpatient (CLI) | payer OTHER, SELFPAY ==
--- OUTSIDE RECORDS SUMMARY | 2025-09-02 08:10 | XMS_ITS | Clinical Summary ---
Author Organization [facility] [employer] Address [address] [place] [address] Care Team Providers Care Narrow Gauge Operator Name Role Phone Unavailable Primary Care Provider Unavailabl e Source Comments [facility],non-owned Affiliates and Associated Physician Practices is amultiple site organization consisting of ambulatory clinics and hospital sitesin [place], [place], [place] and [place]. This disclosure is being madepursuant to the Care Everywhere program and may not contain all information available regarding this patient. Last updated 18.[facility] [employer] Allergies No known active allergies Medications * Be aware that medications may not be up to date on this document. Alwaysverify current medications with the patient. methylPREDNISol one (MEDROL DOSEPAK) 4 MG tablet Take by mouth as directed 1 Each 11/17/2016 Active Social History Tobacco Use Types Packs/Day Years Used Date Smoking Tobacco: Never Sex and Gender Information Value Date Recorded Sex Assigned at Not on file Legal Sex Male 11:46 AM MOVING VAN DRIVER Gender Identity Not on file Sexual Orientation Not on file Last Filed Vital Signs Vital Sign Reading Time Taken Comments Blood Pressure 150/90 11/17/2016 12:16 PM MOVING VAN DRIVER Pulse 100 11/17/2016 12:16 PM MOVING VAN DRIVER Temperature 38.6 C (101.4 F) 11/17/2016 12:16 PM MOVING VAN DRIVER Respiratory Rate 20 11/17/2016 12:16 PM MOVING VAN DRIVER Oxygen Saturation - - Inhaled Oxygen Concentration - - Weight 172.4 kg (380 lb) 11/17/2016 12:16 PM MOVING VAN DRIVER Height 182.9 cm (6') 11/17/2016 12:16 PM MOVING VAN DRIVER Body Mass Index 51.54 11/17/2016 12:16 PM MOVING VAN DRIVER Plan of Treatment Health Maintenance Due Date Last Done Comments LIPID TESTING 1981 HIV SCREENING 1996 HEPATITIS C SCREENING 12/01/1999 DTAP/TDAP/TD VACCINES (1 - Tdap) 2000 HEPATITIS B VACCINE (1 of 3 - 19+ 3-dose series) 2000 HPV VACCINE (1 - 3-dose SCDM series) 2008 DEPRESSION SCREENING 09/11/2024 COVID-19 VACCINE (1 - 2024-2 6 season) 2025 INFLUENZA VACCINE (#1) 2025 ZOSTER VACCINE (1 of 2) 12/06/2031 HIB VACCINE Aged Out No longer eligi ble based on patient's age to complete this topic MENINGOCOCCAL (Group B) VACC INE SHARED DECISION-MAKING Aged Out No longer eligibl e based on patient's age to complete this topic MENINGOCOCCAL GROUPS A/C/Y/W VACCINE Aged Out No longer eligible b ased on patient's age to complete this topic PNEUMOCOCCAL VACCINE Aged Out No long er eligible based on patient's age to complete this topic Insurance ANTH
--- OUTSIDE RECORDS SUMMARY | 2025-09-02 08:10 | XMS_ITS | Clinical Summary ---
Author Organization [facility] Address [address] [place] [address] Phone Care Team Providers Care Intranet Developer Name Role Phone Kerwin Vogt Primary Care Provider +1- [phone] Allergies No known active allergies Medications HYDROcodone-sierra [...] Comments Blood Pressure 132/88 08/27/2019 8:24 AM CASH ACCOUNTING CLERK Pulse 77 08/27/2019 8:24 AM CASH ACCOUNTING CLERK Temperature 36.1 C (97 F) 08/27/2019 8:24 AM CASH ACCOUNTING CLERK Respiratory Rate 18 07/30/2019 7:00 AM CASH ACCOUNTING CLERK Oxygen Saturation 98% 08/27/2019 8:24 AM CASH ACCOUNTING CLERK Inhaled Oxygen Concentration - - Weight 148.8 kg (328 lb) 08/27/2019 8:24 AM CASH ACCOUNTING CLERK Height 185.4 cm (6' 1) 08/27/2019 8:24 AM CASH ACCOUNTING CLERK Body Mass Index 43.27 08/27/2019 8:24 AM CASH ACCOUNTING CLERK Plan of Treatment Health Maintenance Due Date Last Done Comments Diabetes: Eye Exam 1981 Diabetes: Foot Exam 1981 Hepatitis C Virus (HCV) Screening 1981 TdaP Immunization 1981 Varicella Immunization (1 of 2 - 13+ 2-dose series) 1994 Hepatitis B Immunization (1 of 3 - 19+ 3-dose series) 2000 Pneumococcal Immunization Co mbined (1 of 2 - PCV) 2000 Diabetes: Hemoglobin A1c 01/24/2020 07/26/2019 Diabetes: Nephropathy Screening 07/26/2020 9 Influenza Immunization (#1) 2025 SARS-COV-2 Immunization (2024- season) 2025 Respiratory Syncytial Virus (RSV) Immunization (Adult) (1 - 1-dose 75+ series) 2056 Human Papillomavirus (HPV) Immunization (No Doses Required) Completed Meningococcal Immunization (ACWY) Aged Out No longer eligible based on patient's age to complete this topic Rotavirus Immunization Aged Out No lo nger eligible based on patient's age to complete this topic Procedures Procedure Name Priority Date/Time Associated Diagnosis Comments CMP (COMPREHENSIVE METABOLIC PANEL) STAT 07/26/2019 9:20 AM CASH ACCOUNTING CLERK HEMOGLOBIN A1C W/ ESTIMATED GLUCOSE Routine 07/26/2019 9:20 AM CASH ACCOUNTING CLERK from Last 3 Months or Most Recently Relevant to Health Maintenance Results * (ABNORMAL) Hemoglobin A1C (if indicated) (07/26/2019 9:20 AM CASH ACCOUNTING CLERK) HGB-A1C 12.9(H) 4.0 - 6.0 % 07/26/2019 1:33 PM CASH ACCOUNTING CLERK [facility] Est Average Glucose 323.5 mg/dL 07/26/2019 1:33 PM CASH ACCOUNTING CLERK [facility] Blood specimen (specimen) Venous Catheter (IV) / Unknown 07/26/2019 9:20 AM CASH ACCOUNTING CLERK 07/26/2019 9:33 AM CASH ACCOUNTING CLERK Narrative [facility] - 07/26/2019 1:33 PM CASH ACCOUNTING CLERK HEMOGLOBIN A1C: DIABETIC PATIENTS: WELL-CONTROLLED: 6.2 - 7.0 INTERMEDIATE WELL-CONTROLLED: 7.0 - 9.0 POORLY-CONTROLLED: >9.0 us Dominik Oswald MD CHEMISTRY ORDERABLES Fi nal Result [facility] [address] [place] [address] * (ABNORMAL) CMP (07/26/2019 9:20 AM CASH ACCOUNTING CLERK) SODIUM 130(L) 136 - 144 mmol/L 07/26/2019 10:10 AM CASH ACCOUNTING CLERK [facility] POTASSIUM 3.3(L) 3.5 - 5.1 mmol/L 07/26/2019 10:10 AM [facility] CHLORIDE 90(L) 100 - 110 mmol/L 07/26/2019 10:10 AM [facility] CO2, VENOUS 29 22 - 32 mmol/L 07/26/2019 10:10 AM [facility] ANION GAP 14.3 8.0 - 20.0 mmol/L 07/26/2019 10:10 AM [facility] GLUCOSE 286(H) 70 - 99 mg/dL 07/26/2019 10:10 AM [facility] BUN 15 6 - 20 mg/dL 07/26/2019 10:10 AM [facility] CREATININE, BLOOD 0.66(L) 0.80 - 1.30 mg/dL 07/26/2019 10:10 AM [facility] BUN/CREATININE RATIO 23(H) 12 - 20 ratio 07/26/2019 10:10 AM [facility] TOTAL PROTEIN 7.2 6.0 - 8.3 g/dL 07/26/2019 10:10 AM [facility] ALBUMIN 3.6 3.5 - 5.2 g/dL 07/26/2019 10:10 AM [facility] Comment: The colormetric methods used for the determination of Albumin may lead to falsely elevated test results in patients suffering from renal failure or insufficiency due to interference with other proteins. A/G RATIO 1.0 1.0 - 2.0 07/26/2019 10:10 AM [facility] CALCIUM 9.1 8.9 - 10.3 mg/dL 07/26/2019 10:10 AM [facility] T BILI 0.4 <=1.2 mg/dL 07/26/2019 10:10 AM [facility] SGOT (AST) 24 <=40 U/L 07/26/2019 10:10 AM [facility] SGPT (ALT) 47(H) <=41 U/L 07/26/2019 10:10 AM [facility] ALKALINE PHOSPHATASE 86 40 - 130 U/L 07/26/2019 10:10 AM CASH ACCOUNTING CLERK [facility] GFR, EST. NONAFRICAN >60 >=60 07/26/2019 10:10 AM CASH ACCOUNTING CLERK [facility] GFR, EST. >60 >=60 019 10:10 AM [facility] Comment: Creatinine Clearance is the preferred criteria for selecting drug dose adjustments in renally impaired patients. The GFR is provided as additional pertinent clinical information. GFR is reported in mL/min/1.73 sq m. Blood specimen (specimen) Venous Catheter (IV) / Unknown 07/26/2019 9:20 AM CASH ACCOUNTING CLERK 07/26/2019 9:33 AM [facility] us Francisco Perez MD CHEMISTRY ORDERABLES Final Result [facility] [address] [place] [address] from Last 3 Months or Most Recently Relevant to Health Maintenance Advance Directives * Full Code (Latest Code Status on File) Date Activated Date Inactivated Comments 07/26/2019 12:22 PM 07/30/2019 3:37 PM CPR-Full Treatment: FULL ARREST: Attempt Resuscitation/CPR wit intubation and mechanical ventilation. PRE-ARREST: Use entire range of life support measures to stabilize the patient. Care Teams Intranet Developer Relationship Specialty Start Date End Date Kerwin Vogt DO [address] [place] [address] PCP - General Family Medicine 07/30/19
[2025-09-02 18:43] LABS: Alanine Aminotransferase 29 U/L (6-50); Albumin Level 4.6 g/dL (3.5-5.1); Alkaline Phosphatase 73 U/L (38-126); Anion Gap 6 mmol/L (4-12); Aspartate Amino Transferase 68 U/L (17-59); Bilirubin,Total 0.3 mg/dL (0.2-1.3); Blood Urea Nitrogen 19 mg/dL (9-20); Calcium 9.8 mg/dL (8.4-10.2); Carbon Dioxide 29 mmol/L (22-30); Chloride 100 mmol/L (98-107); Cholesterol 176 mg/dL (0-200); Estimated Glomerular Filt Rate > 60; Glucose 128 mg/dL (65-110); HDL Direct 46 mg/dL; Potassium 4.7 mmol/L (3.4-5.0); Sodium 135 mmol/L (137-145); Total Protein 7.9 g/dL (6.3-8.2); Triglycerides 121 mg/dL (<150)
[2025-09-02 19:09] LABS: Hemoglobin A1C 6.6 % (<5.7)
== END 2025-09-02 08:06 | disposition home or self-care (01) ==
PROVIDERS: PCP Nurse Practitioner Adult Health; Visit Provider Nurse Practitioner Adult Health
DX: E11.9 Type 2 diabetes mellitus without complications (principal)
CPT/HCPCS: 36415; 80053; 80061; 83036